=== PATIENT | male | born 1965 | race Caucasian/White ===

== ENCOUNTER 2017-10-12 00:17 | Observation (INO) ==
--- NOTE | 2017-10-12 00:38 | Emergency Department Note ---
Disposition Clinical Impression: Nystagmus, Vertigo Disposition: Admitted As Inpatient Condition: Good General Adult HPI - General Chief complaint: ED Dizziness Stated complaint: dizziness stroke symptoms Time Seen by Provider: 10/12/17 00:25 Source: patient Limitations: no limitations Nursing Notes Reviewed: Yes Vital Signs Reviewed: Yes - History of Present Illness HPI Narrative: 52-year-old male who reports that he was watching TV at 10:30 PM and had sudden onset of dizziness. He reports having difficulty walking and nausea. He denies a history of vertigo in the past. He denies a history of stroke. He denies having any weakness or change in sensation on one side or the other. No difficulty speaking or slurred speech. His past medical history significant for COPD and hypertension. He reports that symptoms have improved somewhat. Pain Scale: 0 Consistency: constant Improves with: nothing Worsens with: nothing Associated symptoms: Reports: denies other symptoms Treatments Prior to Arrival: none - Related Data Allergies Allergy/AdvReac Type Severity Reaction Status Date / Time No Known Allergies Allergy Verified 10/12/17 00:26 All systems ED: reviewed and negative except as stated. Constitutional: Denies: fever ENT ED: Denies: throat pain Cardiovascular: Denies: chest pain Respiratory: Denies: cough Gastrointestinal: Denies: abdominal pain, nausea, vomiting Integumentary: Denies: rash Neurological: Denies: headache Past Medical History - Past Medical History Medical history: Reports: COPD, hyperlipidemia - Social History Smoking Status: Former smoker Alcohol use: Reports: occasionally Drug use: Reports: none Physical Exam - General Limitations: no limitations General appearance: alert, in no apparent distress - Head Head exam: atraumatic - Eye Eye exam: Present: PERRL, EOMI, other (Right gaze sustained nystagmus which is not present on left gaze). Absent: scleral icterus - ENT ENT exam: normal exam, normal oropharynx - Neck Neck exam: Present: normal inspection - Chest Chest inspection: Present: normal inspection - Respiratory Respiratory exam: Present: normal lung sounds bilaterally. Absent: respiratory distress - Cardiovascular Cardiovascular exam: Present: regular rate, normal rhythm - Abdominal Exam Abdominal exam: Present: soft, Non-Tender - Extremities Exam Extremities exam: Present: normal inspection - Back Exam Back exam: Present: normal inspection - Neurological Exam Neurological exam: Present: alert, oriented X3, CN II-XII intact. Absent: motor sensory deficit - Psychiatric Psychiatric exam: Present: normal affect, normal mood - Skin Skin exam: Present: warm, dry Course Course Narrative: He has no focal neurologic deficit. NIH of 0. No motor or sensory deficit. His only physical exam finding is nystagmus on right gaze deviation. No visual field changes. No dysdiadochokinesis. Will do CT head and labwork. No focal neurologic deficit. As such, no indication for TPA. Negative CT head. Negative labwork. Will admit for MRI due to vertigo to r/o posterior ischemia. Ramachandran accepts Vital Signs Temperature 97.4 F L 10/12/17 00:22 Pulse Rate 72 10/12/17 00:22 Respiratory Rate 20 10/12/17 00:22 Blood Pressure 144/85 10/12/17 00:22 O2 Sat by Pulse Oximetry 97 10/12/17 00:22 Temperature 97.4 F L 10/12/17 00:22 Pulse Rate 69 10/12/17 01:00 Respiratory Rate 20 10/12/17 00:22 Blood Pressure 113/67 10/12/17 01:00 O2 Sat by Pulse Oximetry 96 10/12/17 01:00 Oxygen Delivery Oxygen Delivery Room Air Medical Decision Making - Medical Records Medical records reviewed: Yes I reviewed the patient's medical records. - Lab Data Lab results reviewed: Yes I reviewed the patient's lab results. Result diagrams: 10/12/17 00:09 10/12/17 00:09 Lab Results 10/12/17 10/12/17 10/12/17 Range/Units 00:09 00:09 00:09 WBC 7.7 (4.3-11.1) K/mcL RBC 4.90 (4.19-5.50) M/mcL Hgb 15.1 (12.9-16.9) g/dL Hct 45.3 (37.5-50.1) % MCV 92.4 (83.0-100.0) fL MCH 30.8 (28.0-33.3) pg MCHC 33.3 (31.6-35.5) g/dL RDW 12.7 (11.5-14.5) % Plt Count 169 (140-400) K/mcL MPV 10.0 (9.4-12.4) fL Immature Gran % 0.3 (0-4) % Seg Neutrophils % 47.9 % Lymphocytes % 37.9 % Monocytes % 5.2 % Eosinophils % 8.2 % Basophils % 0.5 % Neutrophils # 3.7 (1.6-8.9) K/mcL Lymphocytes # 2.9 (0.6-4.6) K/mcL Monocytes # 0.4 (0.0-1.3) K/mcL Eosinophils # 0.6 (0.0-0.6) K/mcL Basophils # 0.0 (0.0-0.2) K/mcL PT 10.7 (9.4-12.1) Seconds INR 1.0 APTT 24.4 L (26.0-36.0) Seconds Sodium 141 (136-145) mEq/L Potassium 4.1 (3.5-5.1) mEq/L Chloride 106 (98-107) mEq/L Carbon Dioxide 29 (23-29) mEq/L BUN 15 (6-20) mg/dL Creatinine 0.98 (0.70-1.30) mg/dL Est GFR ( Amer) > 60 (> 60) Est GFR (Non-Af Amer) > 60 (> 60) BUN/Creatinine Ratio 15 (6-26) Glucose 145 H (70-105) mg/dL Calculated Osmolality 295 (280-300) Calcium 9.0 (8.6-10.3) mg/dL Troponin I (< 0.04) ng/mL 10/12/17 Range/Units 00:09 WBC (4.3-11.1) K/mcL RBC (4.19-5.50) M/mcL Hgb (12.9-16.9) g/dL Hct (37.5-50.1) % MCV (83.0-100.0) fL MCH (28.0-33.3) pg MCHC (31.6-35.5) g/dL RDW (11.5-14.5) % Plt Count (140-400) K/mcL MPV (9.4-12.4) fL Immature Gran % (0-4) % Seg Neutrophils % % Lymphocytes % % Monocytes % % Eosinophils % % Basophils % % Neutrophils # (1.6-8.9) K/mcL Lymphocytes # (0.6-4.6) K/mcL Monocytes # (0.0-1.3) K/mcL Eosinophils # (0.0-0.6) K/mcL Basophils # (0.0-0.2) K/mcL PT (9.4-12.1) Seconds INR APTT (26.0-36.0) Seconds Sodium (136-145) mEq/L Potassium (3.5-5.1) mEq/L Chloride (98-107) mEq/L Carbon Dioxide (23-29) mEq/L BUN (6-20) mg/dL Creatinine (0.70-1.30) mg/dL Est GFR ( Amer) (> 60) Est GFR (Non-Af Amer) (> 60) BUN/Creatinine Ratio (6-26) Glucose (70-105) mg/dL Calculated Osmolality (280-300) Calcium (8.6-10.3) mg/dL Troponin I < 0.03 (< 0.04) ng/mL - Radiology Data Radiology results reviewed: Yes I reviewed the patient's radiology results. - EKG Data EKG #1 EKG attestation: Yes I reviewed and interpreted this EKG. EKG shows normal: sinus rhythm Rate: normal Rhythm: NSR Johnson/QRS: normal When compared to previous EKG there are: no significant changes Interpretation: no acute changes
[2017-10-12 00:41] LABS: Basophils % 0.5 %; Eosinophils # 0.6 K/mcL (0.0-0.6); Eosinophils % 8.2 %; Hematocrit 45.3 % (37.5-50.1); Hemoglobin 15.1 g/dL (12.9-16.9); Immature Granulocytes % 0.3 % (0-4); Lymphocytes # 2.9 K/mcL (0.6-4.6); Lymphocytes % 37.9 %; Mean Corpuscular HGB Conc 33.3 g/dL (31.6-35.5); Mean Corpuscular Hemoglobin 30.8 pg (28.0-33.3); Mean Corpuscular Volume 92.4 fL (83.0-100.0); Monocytes # 0.4 K/mcL (0.0-1.3); Monocytes % 5.2 %; Neutrophils # 3.7 K/mcL (1.6-8.9); Platelet Count 169 K/mcL (140-400); Red Cell Distribution Width 12.7 % (11.5-14.5); Segmented Neutrophils % 47.9 %
[2017-10-12 00:47] LABS: Prothrombin Time 10.7 Seconds (9.4-12.1)
[2017-10-12 00:50] LABS: Activated Partial Thrombo Time 24.4 Seconds (26.0-36.0)
[2017-10-12] MEDS ORDERED: Scopolamine Patch 1.5 MG PATCH.TD72 TD ONE (00:57)
--- NOTE | 2017-10-12 00:58 | Emergency Department Note ---
START Narrative - START START: I examined this patient and my medical decision-making was reviewed with the Resident Physician. I agree with the documented findings, disposition and treatment plan as described except to the extent set forth below. 52 year old male presns to the ED with complaints of dizziness that started at 2230 today abruptly while he was watching TV with some nystagmus that is present but no other neurological defecits. He states this is a first time occurance and that he was inintially evaluted by the [facility] EMS crew who reccomedned to come here for stroke evaluaiton. Our concern is for a central vertigo vs peripheral vertigo. WE will lkely admit him to for an MRI to rule out central origings for this symtpoms and treat him with a ASA.
[2017-10-12 01:39] LABS: BUN/Creatinine Ratio 15 (6-26); Blood Urea Nitrogen 15 mg/dL (6-20); Carbon Dioxide 29 mEq/L (23-29); Chloride 106 mEq/L (98-107); Glucose 145 mg/dL (70-105); Osmolality,Calculated 295 (280-300); Potassium 4.1 mEq/L (3.5-5.1); Sodium 141 mEq/L (136-145); eGFR For African Americans > 60 (> 60); eGFR For Non-African Americans > 60 (> 60)
[2017-10-12] MEDS ORDERED: Aspirin 325 MG TABLET PO ONE (02:18)
--- NOTE | 2017-10-12 03:03 | Internal Med History&Physical ---
<Germán Blackman - Last Filed: 10/12/17 03:23> Date of Encounter: 10/12/17 Time of Encounter: 02:58 Assessment and Plan (1) COPD (chronic obstructive pulmonary disease) Current visit: Yes Status: Acute Patient is stable. DUONEB prn. Continue to monitor. Qualifiers: Qualified Code(s): J44.9 - Chronic obstructive pulmonary disease, unspecified (2) DVT prophylaxis Current visit: Yes Status: Acute Will give Heparin SQ. (3) Vertigo Current visit: Yes Status: Acute Etiology is undetermined. Need to rule out cerebellar stroke. 1. Will order MRI in the morning. 2. Symptomatic treatment with Meclizine and Zofran. 3. Continuous cardiac monitoring. 4. Echocardiogram 5. Duplex Ultrasound at the bilateral carotids. 6. NIHSS Q4hr Internal Medicine - H&P: HPI Chief complaint: dizziness Admitted From: Emergency Dept History of present illness: Mr. Blanco is a 52 year old male with the past medical history of COPD and hyperlipidemia who presents emergency department complaining of dizziness that started around 10:30 PM tonight. The patient states that he was laying in bed and watching TV when suddenly he became dizzy. He describes the dizziness as "feeling like I'm drunk". Patient states that moving around makes the dizziness worse and laying still made the it better. He admits blurry vision and nausea. He states that the dizziness is constant and that he never had this before. He denies any history of vertigo or stroke. He denies any headache, chest pain, shortness of breath, difficulty breathing, abdominal pain , diarrhea, bloody urine, numbness and tingling, or any weaknesses. Past Med Surg Social Fam HX - Past Medical History Medical history: COPD, hyperlipidemia - Social History Smoking Status: Former smoker Alcohol use: occasionally Drug use: none Internal Medicine - H&P: Meds 3 Allergy/AdvReac Type Severity Reaction Status Date / Time No Known Allergies Allergy Verified 10/12/17 00:26 All Systems PM: A 10-system review of systems was performed and is negative for pertinent findings except as documented above in the HPI. - Constitutional Vitals: Temp Pulse Resp BP Pulse Ox 97.4 F L 71 18 145/89 95 10/12/17 00:22 10/12/17 02:00 10/12/17 02:42 10/12/17 02:42 10/12/17 02:00 - Head Head exam: Present: atraumatic, normocephalic - Eye Eye exam: Present: nystagmus (Bilateral horizontal nystagmus), PERRL, conjuntiva pink, sclera anicteric Pupils: Present: PERRL - Expanded Eye Exam Pupils: reactive: Bilateral, regular, round: Bilateral - Neck Neck exam general surgery: Present: supple, trachea midline. Absent: lymphadenopathy - Respiratory Respiratory exam: Present: CTAB. Absent: accessory muscle use, rales, rhonchi, wheezes - Cardiovascular Cardiovascular exam: Present: RRR, +S1, +S2. Absent: diastolic murmur, gallop, rubs, systolic murmur - GI/Abdominal GI/Abdominal exam: Present: normal bowel sounds, soft, no peritoneal signs. Absent: distended, tenderness - Extremities Exam Extremities exam: Present: warm, radial pulses palpable and symmetrical. Absent : calf tenderness, cyanotic, pedal edema - Neurological Exam Neurological exam: Present: alert, CN II-XII intact, oriented X3, no focal deficits, strengths equal and symetr throughout. Absent: altered, pronater drift, facial droop, speech deficit - Skin Skin exam: Present: dry, intact Internal Med - H&P Results - Labs CBC & Chem 7: 10/12/17 00:09 10/12/17 00:09 <Mahsa Ramachandran - Last Filed: 10/12/17 03:33> Date of Encounter: 10/12/17 Internal Medicine - H&P: HPI History of present illness: Mr. Blanco is a 52 year old male All Systems PM: A 10-system review of systems was performed and is negative for pertinent findings except as documented above in the HPI. - Constitutional Vitals: Temp Pulse Resp BP Pulse Ox 97.5 F L 69 16 118/70 97 10/12/17 03:28 10/12/17 03:28 10/12/17 03:28 10/12/17 03:28 10/12/17 03:28 Internal Med - H&P Results - Labs CBC & Chem 7: 10/12/17 00:09 10/12/17 00:09 - Attending Attestation I have seen and examined the patient independently. I have discussed that with resident physician Dr Blackman regarding the management plan. Agree with that documentation. Pt has sudden onset vertigo. No other neurological deficit. Need to r/o central vertigo like stroke. Will place pt on cardiac monitoring, check echo and duplex carotid. MRI in am.
[2017-10-12] MEDS ORDERED: Naloxone 0.4 MG/ML INJ IVP PRN (03:32)
[2017-10-12] MEDS ORDERED: Ondansetron ODT 4 MG TAB.RAPDIS SL PRN (03:32)
[2017-10-12] MEDS ORDERED: Acetaminophen 325 MG TABLET PO PRN (03:32)
[2017-10-12] MEDS ORDERED: Ipratropium/Albuterol Neb 3 ML IH PRN (03:42)
[2017-10-12 05:20] LABS: BUN/Creatinine Ratio 17 (6-26); Blood Urea Nitrogen 14 mg/dL (6-20); Calcium 8.9 mg/dL (8.6-10.3); Carbon Dioxide 28 mEq/L (23-29); Chloride 107 mEq/L (98-107); Glucose 143 mg/dL (70-105); Osmolality,Calculated 293 (280-300); Phosphorous 2.8 mg/dL (2.7-4.5); Potassium 3.8 mEq/L (3.5-5.1); Sodium 140 mEq/L (136-145); eGFR For African Americans > 60 (> 60); eGFR For Non-African Americans > 60 (> 60)
[2017-10-12] MEDS ORDERED: *HR* Heparin 5,000 UNIT/ML VIAL SQ SCH (06:00)
[2017-10-12] MEDS ORDERED: Aspirin Enteric Coated 81 MG Tablet PO SCH (09:00)
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
[2017-10-12 14:43] VITALS: BP 118/73
--- NOTE | 2017-10-12 16:11 | Discharge Summary ---
Date of Encounter: 10/12/17 Time of Encounter: 15:59 - Discharge Diagnosis (1) Benign paroxysmal positional vertigo Priority: Primary Status: Acute Comments: suspected. Presented with dizziness, as if he was drunk and nausea worse with ambulation and movement. Head CT nonacute, brain MRI unremarkable. TTE with EF 60% and mild diastolic dysfunction. Evaluated by ENT who suspects BPPV. [place] obrien pike completed and positive per ENT with nystagmus noted to left. Monica procedure performed x2 with patient reporting resolution of symptoms following each procedure. Discharge home with PRN meclizine, Zofran. Outpatient follow- up set up with your therapy. Patient still symptomatic at time of discharge however overall improved. Advised to return to ER if symptoms worsen. Qualifiers: Laterality: left Qualified Code(s): H81.12 - Benign paroxysmal vertigo, left ear (2) COPD (chronic obstructive pulmonary disease) Priority: Secondary Status: Chronic Comments: per hx. No evidence of exacerbation. Continue home inhalers. Qualifiers: Qualified Code(s): J44.9 - Chronic obstructive pulmonary disease, unspecified - Discharge Medications Prescriptions: Ondansetron ODT [Zofran ODT] 4 mg SL Q8HR PRN #30 tab.rapdis PRN Reason: Nausea And Vomiting Meclizine [Antivert] 25 mg PO TID PRN #30 tablet PRN Reason: Dizziness Home Medications: Beclomethasone Diprop 80mcg [QVAR 80 mcg] 1 puff IH BID 10/12/17 [History] Lovastatin [Mevacor] 20 mg PO DAILY 10/12/17 [History] Meclizine [Antivert] 25 mg PO TID PRN #30 tablet 10/12/17 [Rx] Ondansetron ODT [Zofran ODT] 4 mg SL Q8HR PRN #30 tab.rapdis 10/12/17 [Rx] Allergies/Adverse Reactions: 3 Allergy/AdvReac Type Severity Reaction Status Date / Time No Known Allergies Allergy Verified 10/12/17 00:26 Procedures/tests Complete & Pending: Procedures Performed prior 72 hours Category Date Time Status MR head/brain wo con [MR] Routine MRI 10/12/17 03:39 Draft ECG 12 lead ECG [ECG] Routine Y 10/12/17 00:29 Completed EV carotid duplex imaging BI Routine Y 10/12/17 03:38 Completed EV echocardiogram Routine Y 10/12/17 03:38 Completed Date of admission: 10/12/17 02:23 Primary care physician: Analisa Cutler Consults: 10/12/17 13:20 Consult to ENT [CONS] Routine Consulting Provider: ADAIR Werner Reason for Consult: Disequilibrium, nausea with ambulation or head movement Call Completed: Yes Discharging clinician: Rylee Valdivia Anticipated date of discharge: 10/12/17 - Patient Status Disposition: Home, Self-Care Condition: Good Functional capacity at discharge: independent ambulation Overall status at discharge: patient is progressing back to baseline - Discharge Instructions Instructions: Benign Paroxysmal Positional Vertigo (DC), Meclizine (By mouth) , Ondansetron (By mouth) Follow Up With: Analisa Cutler [Primary Care Provider] - Aidan Cunha [Family Provider] - Forms: ED Satisfaction Letter Additional Instructions: Please do not drive or return to work unless symptoms are completely resolved until you have been cleared by ENT whichever occurs first - Diet and Activity Activity: return to work once cleared by your PCP/specialist Diet: advance to your usual diet Interval History: Seen and examined at bedside; patient reports dizziness and feeling as if he was drunk with nausea that is worse with movement and ambulation. Onset yesterday evening at 10:30 PM with acute onset. Says he feels a little better Ondina procedure but still having intermittent symptoms. He is aware of need to follow up with vestibular rehabilitation and advised her has been made. Discharge home on meclizine and Zofran as needed. Advised to return to the emergency room if symptoms worsen. Hospital course: See assessment and plan for hospital course - Time Spent with Patient Total time spent providing and/or coordinating discharge services: - Constitutional Vitals: Temp Pulse Resp BP Pulse Ox 98.1 F 95 18 118/73 95 10/12/17 14:42 10/12/17 14:42 10/12/17 14:42 10/12/17 14:42 10/12/17 14:42 General appearance: Present: A&O X 3, no acute distress - Head Head exam: Present: atraumatic, normocephalic - Eye Eye exam: Present: PERRL, conjuntiva pink, sclera anicteric Pupils: Present: PERRL - Neck Neck exam general surgery: Present: supple, trachea midline. Absent: lymphadenopathy - Respiratory Respiratory exam: Present: CTAB. Absent: accessory muscle use, rales, rhonchi, wheezes - Cardiovascular Cardiovascular exam: Present: RRR, +S1, +S2. Absent: diastolic murmur, gallop, rubs, systolic murmur - GI/Abdominal GI/Abdominal exam: Present: normal bowel sounds, soft, no peritoneal signs. Absent: distended, tenderness - Extremities Exam Extremities exam: Present: warm, radial pulses palpable and symmetrical. Absent : calf tenderness, cyanotic, pedal edema - Neurological Exam Neurological exam: Present: CN II-XII intact, oriented X3, no focal deficits. Absent: pronater drift, facial droop, speech deficit - Skin Skin exam: Present: dry, intact
--- NOTE | 2017-10-12 16:53 | Electrocardiograph Report ---
[address] [address] Test Date: 2017-10-12 Pat Name: Monroe Blanco Department: 104 Room: 3B Gender: M Day Care Aide: : 1965 Requested By: Rylee Valdivia Order Number: [id number] Reading MD: Nikko Og MD Measurements Intervals [place] Rate: 64 P: 26 NC: 160 QRS: 35 QRSD: 77 T: 58 QT: 408 QTc: 418 Interpretive Statements SINUS RHYTHM Electronically Signed On 10-12-2017 16:51:21 EST by Nikko Og MD
--- NOTE | 2017-10-13 13:52 | ENT - Procedure Note ---
Date of procedure: 10/13/17 Procedure: Preprocedure diagnosis: Benign paroxysmal positional vertigo, left side Procedure diagnosis: Same Procedure: Monica maneuver CPT 46265 Blood loss: 0 Specimens: None Anesthesia: None Procedure in detail: While sitting on the bed, the patient's head was rotated to face the direction that causes the veritgo., The patient was then reclined backward, so the head ended up over the edge of the bed,, still facing over the same shoulder. This position was held until all nystagmus and symptomatic vertigo resolved., Next, the patient's head was rotated to face over the opposite shoulder and held again until vertigo and nystagmus resolved., The, the patient was rolled on the side in the direction to which he/she is facing and held in this position with the head facing the floor until any recurrent vertigo resolved. ., The patient was assisted into a sitting position, keeping their head facing over the shoulder. His procedure was then repeated the same side. The patient tolerated well. Was there an personal banking assistant present: No Estimated blood loss (cc): 0 Specimens collected: none
== END 2017-10-12 17:15 | disposition home or self-care (01) ==
LOC: EMEROO 00:17 → 3BNU 00:17
PROVIDERS: ADMIT Internal Medicine; ATTEND Registered Nurse